=== PATIENT | female | born 1975 | race Caucasian/White ===

== ENCOUNTER 2019-04-20 06:08 | Inpatient (IN) | payer OTHER ==
[2019-04-20] MEDS ORDERED: Diltiazem 25 MG/5 ML SDV IVPUSH ONE ×4 (06:21→11:17)
[2019-04-20] MEDS ORDERED: Diltiazem 25 MG/5 ML SDV ONE (06:23)
[2019-04-20] MEDS ORDERED: Sodium Chloride 0.9% 2.5 ML Syringe FLUSH PRN (06:25)
[2019-04-20] MEDS ORDERED: Sodium Chloride 0.9% 10 ML Syringe FLUSH PRN (06:25)
--- NOTE | 2019-04-20 06:46 | CR ---
Indication: Irregular heartbeat Technique: Chest 1 view Comparison: None Findings/Impression: Cardiovascular and mediastinum: Heart size and vasculature are normal in caliber and appearance. Mediastinum is within normal limits. Lungs and pleural space: Lungs are clear. No sign of infiltrate or mass. No sign of pleural effusion. No pneumothorax. Bones and soft tissues: No significant findings. Dictated by Suri Santillan MD @ Apr 20 2019 6:43AM Signed by Dr. Suri Santillan @ Apr 20 2019 6:43AM
[2019-04-20 07:02] LABS: CHLORIDE,CL 105 mmol/L (98-107); SODIUM,NA 141 mmol/L (136-145)
[2019-04-20] MEDS ORDERED: Sodium Chloride 0.9% 1,000 ML IV SCH (07:15)
[2019-04-20] MEDS ORDERED: Digoxin 500 MCG/2 ML Amp IVPUSH ONE (07:46)
--- NOTE | 2019-04-20 07:48 | EDM.PDOC ---
ED HPI GENERAL MEDICAL PROBLEM - General Chief Complaint: Cardiovascular Problem Stated Complaint: AFIB Time Seen by Provider: 04/20/19 07:47 Source of Information: Reports: Patient - History of Present Illness INITIAL COMMENTS - FREE TEXT/NARRATIVE: HISTORY AND PHYSICAL: History of present illness: [Patient with history of atrial fibrillation previous cardioversion in [facility] presents with awakening from sleep with shortness of breath and rapid heart rate sensation On arrival rate is in the 140s she is in no distress no chest pain headache dizziness no bowel or urine symptoms] Review of systems: As per history of present illness and below otherwise all systems reviewed and negative. Past medical history: As per history of present illness and as reviewed below otherwise noncontributory. Surgical history: As per history of present illness and as reviewed below otherwise noncontributory. Social history: No reported history of drug or alcohol abuse. Family history: As per history of present illness and as reviewed below otherwise noncontributory. Physical exam: HEENT: Atraumatic, normocephalic, pupils reactive, negative for conjunctival pallor or scleral icterus, mucous membranes moist, throat clear, neck supple, nontender, trachea midline. Lungs: Clear to auscultation, breath sounds equal bilaterally, chest nontender. Heart: S1S2, regular, negative for clicks, rubs, or JVD. Abdomen: Soft, nondistended, nontender. Negative for masses or hepatosplenomegaly. Negative for costovertebral tenderness. Pelvis: Stable nontender. Genitourinary: Deferred. Rectal: Deferred. Extremities: Atraumatic, negative for cords or calf pain. Neurovascular unremarkable. Neuro: Awake, alert, oriented. Cranial nerves II through XII unremarkable. Cerebellum unremarkable. Motor and sensory unremarkable throughout. Exam nonfocal. Diagnostics: [CBC CMP troponin EKG Chest 1 view ] Therapeutics: [Normal saline Cardizem 20 mg IV 2 Digoxin 0.125 IV ] Impression: [ A. fib with RVR ] Definitive disposition and diagnosis as appropriate pending reevaluation and review of above. - Related Data Allergies Allergy/AdvReac Type Severity Reaction Status Date / Time adhesive tape Allergy Hives Verified 04/20/19 06:37 diphenhydramine Allergy Tachycardia Verified 04/20/19 06:37 [From Benadryl] Home Meds: Home Meds Diltiazem [Dilacor XR] 1 cap PO DAILY 06/26/18 [History] Lisinopril 20 mg PO DAILY 06/26/18 [History] Rivaroxaban [Xarelto] 1 tab PO DAILY 06/26/18 [History] Sotalol HCl [Sotalol] 80 mg PO BID 06/26/18 [History] metFORMIN [Glucophage XR] 1 tab PO BID 06/26/18 [History] hydroCHLOROthiazide [Hydrochlorothiazide] 1 tab PO DAILY 08/07/18 [History] Past Medical History Cardiovascular History: Reports: Afib, Arrhythmia, Hypertension Respiratory History: Reports: Asthma 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 History: Reports: Polycystic Ovaries Neurological History: Reports: Migraines Endocrine/Metabolic History: Reports: Obesity/BMI 30+ - Infectious Disease History Infectious Disease History: Reports: Chicken Pox - Past Surgical History HEENT Surgical History: Reports: Tonsillectomy Cardiovascular Surgical History: Reports: Other (See Below) Other Cardiovascular Surgeries/Procedures: cardioversion GI Surgical History: Reports: Cholecystectomy Female Surgical History: Reports: D&C Social & Family History - Family History Family Medical History: Noncontributory - Tobacco Use Smoking Status *Q: Never Smoker - Caffeine Use Caffeine Use: Reports: None - Recreational Drug Use Recreational Drug Use: No ED ROS GENERAL - Review of Systems Review Of Systems: See Below ED EXAM, GENERAL - Physical Exam Exam: See Below Course - Vital Signs Last Recorded V/S: Last Vital Signs Temp 97 F 04/20/19 06:08 Pulse 137 H 04/20/19 07:56 Resp 18 04/20/19 07:22 BP 163/87 H 04/20/19 07:22 Pulse Ox 97 04/20/19 07:22 - Orders/Labs/Meds Orders: Active Orders 24 hr Category Date Time Status Cardiac Monitoring [RC] . DIRECTED Care 04/20/19 06:24 Active EKG Documentation Completion [RC] STAT Care 04/20/19 06:22 Active Sodium Chloride 0.9% [Normal Saline] 1,000 ml Med 04/20/19 07:15 Active IV STAT Sodium Chloride 0.9% [Saline Flush] Med 04/20/19 06:25 Active 10 ml FLUSH ASDIRECTED PRN Sodium Chloride 0.9% [Saline Flush] Med 04/20/19 06:25 Active 2.5 ml FLUSH ASDIRECTED PRN Saline Lock Insert [OM.PC] Stat Oth 04/20/19 06:25 Ordered Medication Orders Sodium Chloride (Normal Saline) 1,000 mls @ 1,225 mls/hr IV STAT RADHA Last Infusion: 04/20/19 07:09 Dose: 125 mls/hr Admin: 04/20/19 07:08 Dose: 1,225 mls/hr Sodium Chloride (Saline Flush) 10 ml FLUSH ASDIRECTED PRN PRN Reason: Keep Vein Open Last Admin: 04/20/19 07:08 Dose: 10 ml Sodium Chloride (Saline Flush) 2.5 ml FLUSH ASDIRECTED PRN PRN Reason: Keep Vein Open Last Admin: 04/20/19 07:08 Dose: 2.5 ml Labs: Laboratory Tests 04/20/19 04/20/19 04/20/19 Range/Units 06:24 06:24 06:24 WBC 11.41 H (4.0-11.0) K/uL RBC 4.93 (4.30-5.90) M/uL Hgb 14.7 (12.0-16.0) g/dL Hct 45.0 (36.0-46.0) % MCV 91.3 (80.0-98.0) fL MCH 29.8 (27.0-32.0) pg MCHC 32.7 (31.0-37.0) g/dL RDW Std Deviation 48.9 (28.0-62.0) fl RDW Coeff of All 15 (11.0-15.0) % Plt Count 297 (150-400) K/uL MPV 10.80 (7.40-12.00) fL Neut % (Auto) 51.1 (48.0-80.0) % Lymph % (Auto) 32.2 (16.0-40.0) % [place] % (Auto) 8.4 (0.0-15.0) % Eos % (Auto) 7.4 H (0.0-7.0) % Baso % (Auto) 0.9 (0.0-1.5) % Neut # (Auto) 5.8 H (1.4-5.7) K/uL Lymph # (Auto) 3.7 H (0.6-2.4) K/uL [place] # (Auto) 1.0 H (0.0-0.8) K/uL Eos # (Auto) 0.9 H (0.0-0.7) K/uL Baso # (Auto) 0.1 (0.0-0.1) K/uL Nucleated RBC % 0.0 /100WBC Nucleated RBCs # 0 K/uL INR 0.95 Sodium 141 (136-145) mmol/L Potassium 3.5 (3.5-5.1) mmol/L Chloride 105 (98-107) mmol/L Carbon Dioxide 26.8 (21.0-32.0) mmol/L BUN 16 (7.0-18.0) mg/dL Creatinine 0.8 (0.6-1.0) mg/dL Est Cr Clr Drug Dosing 85.76 mL/min Estimated GFR (MDRD) > 60.0 ml/min Glucose 131 H (74-106) mg/dL Calcium 9.3 (8.5-10.1) mg/dL Total Bilirubin 0.2 (0.2-1.0) mg/dL AST 7 L (15-37) IU/L ALT 11 L (14-63) IU/L Alkaline Phosphatase 121 H (46-116) U/L Troponin I < 0.050 (0.000-0.056) ng/mL Total Protein 7.4 (6.4-8.2) g/dL Albumin 3.0 L (3.4-5.0) g/dL Globulin 4.4 H (2.6-4.0) g/dL Albumin/Globulin Ratio 0.7 L (0.9-1.6) TSH 3rd Generation 1.64 (0.36-3.74) uIU/mL Meds: Medications Generic Name Dose Route Start Last Admin Trade Name Freq PRN Reason Stop Dose Admin Sodium Chloride 1,000 mls @ 1,225 mls/hr 04/20/19 07:15 04/20/19 07:09 Normal Saline IV 125 mls/hr STAT RADHA Infusion Sodium Chloride 10 ml 04/20/19 06:25 04/20/19 07:08 Saline Flush FLUSH 10 ml ASDIRECTED PRN Administration Keep Vein Open Sodium Chloride 2.5 ml 04/20/19 06:25 04/20/19 07:08 Saline Flush FLUSH 2.5 ml ASDIRECTED PRN Administration Keep Vein Open Discontinued Medications Generic Name Dose Route Start Last Admin Trade Name Gudelia PRN Reason Stop Dose Admin Digoxin 125 mcg 04/20/19 07:46 04/20/19 07:56 Lanoxin IVPUSH 04/20/19 07:47 125 mcg ONETIME ONE Administration Diltiazem HCl 25 mg 04/20/19 06:21 04/20/19 06:27 Diltiazem IVPUSH 04/20/19 06:22 25 mg ONETIME ONE Administration Diltiazem HCl Confirm 04/20/19 06:23 04/20/19 06:34 Diltiazem Administered 04/20/19 06:24 Not Given Dose 25 mg .ROUTE .STK-MED ONE Diltiazem HCl 20 mg 04/20/19 07:13 04/20/19 07:25 Diltiazem IVPUSH 04/20/19 07:14 20 mg ONETIME ONE Administration Departure - Departure Time of Disposition: 08:08 Disposition: Admitted As Inpatient 67 Condition: Fair Clinical Impression: Atrial fibrillation with RVR Referrals: Rj Don MD [Primary Care Provider] - Forms: ED Department Discharge - My Orders Last 24 Hours: My Active Orders 04/20/19 07:15 Sodium Chloride 0.9% [Normal Saline] 1,000 ml IV STAT - Assessment/Plan Last 24 Hours: My Active Orders 04/20/19 07:15 Sodium Chloride 0.9% [Normal Saline] 1,000 ml IV STAT
[2019-04-20] MEDS ORDERED: Albuterol 0.083% 2.5 MG/3 ML Neb Soln NEB PRN (08:15)
[2019-04-20] MEDS ORDERED: Ondansetron 4 MG Tab.DIS PO PRN (08:15)
[2019-04-20] MEDS ORDERED: Ondansetron 4 MG/2 ML SDV IVPUSH PRN (08:15)
[2019-04-20] MEDS ORDERED: Ibuprofen 600 MG Tab PO PRN (08:15)
[2019-04-20] MEDS ORDERED: Acetaminophen 325 MG Tab PO PRN (08:15)
[2019-04-20] MEDS ORDERED: Diltiazem 125 MG in Sodium Chloride 0.9% 100 ML IV SCH (08:30)
[2019-04-20] MEDS: Diltiazem 100 MG in Sodium Chloride 0.9% 100 ML IV SCH ×3 (08:46→21:16)
[2019-04-20] MEDS ORDERED: Non-Formulary Medication 1 Each (Lisinopril 20 MG) PO SCH (09:00)
[2019-04-20] MEDS ORDERED: Lisinopril 10 MG Tab PO SCH (09:00)
[2019-04-20] MEDS ORDERED: METFORMIN PO SCH (09:00)
[2019-04-20] MEDS ORDERED: Rivaroxaban 10 MG Tab PO SCH (09:00)
[2019-04-20] MEDS: LORazepam 2 MG/ML SDV IVPUSH PRN ×3 (09:30→23:23)
--- NOTE | 2019-04-20 09:51 | PCM.HP.2 ---
<Benjamin Miles - Last Filed: 04/20/19 11:32> H&P History of Present Illness - General Date of Service: 04/20/19 Admit Problem/Dx: Admission Diagnosis/Problem Admission Diagnosis/Problem Atrial fibrillation with rapid ventricular response - History of Present Illness Initial Comments - Free Text/Narative: 43 y/o female with history of Afib s/p cardioversion in 2016 who presented to the ER complaining of worsening shortness of breath. States she was feeling palpitations yesterday. No chest pain. Some shortness of breath. States she was started on Xarelto by her PCP recently. Denies any nausea, vomiting. No abdominal pain, dysuria, diarrhea. No worsening leg swelling. In the ER, she was found to be in Afib with RVR 130-150's. Diltiazem IV was given. - Related Data Allergies/Adverse Reactions: Allergies Allergy/AdvReac Type Severity Reaction Status Date / Time adhesive tape Allergy Hives Verified 04/20/19 06:37 diphenhydramine Allergy Tachycardia Verified 04/20/19 06:37 [From Benadryl] Home Medications: Home Meds Diltiazem [Dilacor XR] 1 cap PO DAILY 06/26/18 [History] Lisinopril 30 mg PO DAILY 06/26/18 [History] Rivaroxaban [Xarelto] 1 tab PO DAILY 06/26/18 [History] Sotalol HCl [Sotalol] 80 mg PO BID 06/26/18 [History] metFORMIN [Glucophage XR] 1 tab PO BID 06/26/18 [History] hydroCHLOROthiazide [Hydrochlorothiazide] 1 tab PO DAILY 08/07/18 [History] Past Medical History Cardiovascular History: Reports: Afib, Arrhythmia, Hypertension Respiratory History: Reports: Asthma 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: Polycystic 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 Neurological History: Reports: Migraines Endocrine/Metabolic History: Reports: Obesity/BMI 30+ - Infectious Disease History Infectious Disease History: Reports: Chicken Pox - Past Surgical History HEENT Surgical History: Reports: Tonsillectomy Cardiovascular Surgical History: Reports: Other (See Below) Other Cardiovascular Surgeries/Procedures: cardioversion GI Surgical History: Reports: Cholecystectomy Female Surgical History: Reports: D&C Social & Family History - Family History Family Medical History: Noncontributory - Tobacco Use Smoking Status *Q: Never Smoker - Caffeine Use Caffeine Use: Reports: None - Recreational Drug Use Recreational Drug Use: No H&P Review of Systems - Review of Systems: Review Of Systems: ROS reveals no pertinent complaints other than HPI. Exam - Exam Exam: See Below - Vital Signs Vital Signs: Last Vital Signs Temp 36.1 C 04/20/19 06:08 Pulse 98 04/20/19 08:15 Resp 18 04/20/19 07:22 BP 146/74 H 04/20/19 08:15 Pulse Ox 98 04/20/19 08:15 Weight: 181 kg - Exam General: Alert, Oriented, Cooperative Lungs: Clear to Auscultation. No: Crackles, Wheezing Cardiovascular: Irregular Rhythm, Tachycardia GI/Abdominal Exam: Other (large body habitus unable to fully assess) Extremities: Normal Inspection, No Pedal Edema Skin: Warm, Dry - Patient Data Lab Results Last 24 hrs: Laboratory Results - last 24 hr 04/20/19 04/20/19 04/20/19 Range/Units 06:24 06:24 06:24 WBC 11.41 H (4.0-11.0) K/uL RBC 4.93 (4.30-5.90) M/uL Hgb 14.7 (12.0-16.0) g/dL Hct 45.0 (36.0-46.0) % MCV 91.3 (80.0-98.0) fL MCH 29.8 (27.0-32.0) pg MCHC 32.7 (31.0-37.0) g/dL RDW Std Deviation 48.9 (28.0-62.0) fl RDW Coeff of All 15 (11.0-15.0) % Plt Count 297 (150-400) K/uL MPV 10.80 (7.40-12.00) fL Neut % (Auto) 51.1 (48.0-80.0) % Lymph % (Auto) 32.2 (16.0-40.0) % [place] % (Auto) 8.4 (0.0-15.0) % Eos % (Auto) 7.4 H (0.0-7.0) % Baso % (Auto) 0.9 (0.0-1.5) % Neut # (Auto) 5.8 H (1.4-5.7) K/uL Lymph # (Auto) 3.7 H (0.6-2.4) K/uL [place] # (Auto) 1.0 H (0.0-0.8) K/uL Eos # (Auto) 0.9 H (0.0-0.7) K/uL Baso # (Auto) 0.1 (0.0-0.1) K/uL Nucleated RBC % 0.0 /100WBC Nucleated RBCs # 0 K/uL INR 0.95 Sodium 141 (136-145) mmol/L Potassium 3.5 (3.5-5.1) mmol/L Chloride 105 (98-107) mmol/L Carbon Dioxide 26.8 (21.0-32.0) mmol/L BUN 16 (7.0-18.0) mg/dL Creatinine 0.8 (0.6-1.0) mg/dL Est Cr Clr Drug Dosing 85.76 mL/min Estimated GFR (MDRD) > 60.0 ml/min Glucose 131 H (74-106) mg/dL Calcium 9.3 (8.5-10.1) mg/dL Total Bilirubin 0.2 (0.2-1.0) mg/dL AST 7 L (15-37) IU/L ALT 11 L (14-63) IU/L Alkaline Phosphatase 121 H (46-116) U/L Troponin I < 0.050 (0.000-0.056) ng/mL Total Protein 7.4 (6.4-8.2) g/dL Albumin 3.0 L (3.4-5.0) g/dL Globulin 4.4 H (2.6-4.0) g/dL Albumin/Globulin Ratio 0.7 L (0.9-1.6) TSH 3rd Generation 1.64 (0.36-3.74) uIU/mL Result Diagrams: 04/20/19 06:24 04/20/19 06:24 Problem List Initiated/Reviewed/Updated: Yes Orders Last 24hrs: Active Orders 24 hr Category Date Time Status Admission Status [Patient Status] [ADT] Stat ADT 04/20/19 08:16 Active Cardiac Monitoring [RC] . DIRECTED Care 04/20/19 06:24 Active EKG Documentation Completion [RC] STAT Care 04/20/19 06:22 Active Intake and Output [RC] QSHIFT Care 04/20/19 08:15 Active Oxygen Therapy [RC] PRN Care 04/20/19 08:15 Active RT Aerosol Therapy [RC] ASDIRECTED Care 04/20/19 08:17 Active Up ad Katt [RC] ASDIRECTED Care 04/20/19 08:15 Active VTE/DVT Education [RC] PER UNIT ROUTINE Care 04/20/19 08:15 Active Vital Signs [RC] Q4H Care 04/20/19 08:15 Active Heart Healthy Diet [DIET] Diet 04/20/19 Lunch Active Acetaminophen [Tylenol] Med 04/20/19 08:15 Active 650 mg PO Q4H PRN Albuterol [Proventil Neb Soln] Med 04/20/19 08:15 Active 2.5 mg NEB Q2H PRN Diltiazem [Cardizem] 100 mg Med 04/20/19 08:30 Active Sodium Chloride 0.9% [Normal Saline] 100 ml IV NOW Ibuprofen [Motrin] Med 04/20/19 08:15 Active 600 mg PO Q6H PRN LORazepam [Ativan] Med 04/20/19 08:21 Active 1 mg IVPUSH Q6H PRN Lisinopril [Prinivil] Med 04/20/19 09:00 Active 20 mg PO DAILY Ondansetron [Zofran ODT] Med 04/20/19 08:15 Active 4 mg PO Q4H PRN Ondansetron [Zofran] Med 04/20/19 08:15 Active 4 mg IVPUSH Q4H PRN Patient's Own Medication [Ptom] Med 04/20/19 09:00 Active 1 each PO BID Rivaroxaban [Xarelto] Med 04/20/19 09:00 Active 10 mg PO DAILY Sodium Chloride 0.9% [Normal Saline] 1,000 ml Med 04/20/19 07:15 Active IV STAT Sodium Chloride 0.9% [Saline Flush] Med 04/20/19 06:25 Active 10 ml FLUSH ASDIRECTED PRN Sodium Chloride 0.9% [Saline Flush] Med 04/20/19 06:25 Active 2.5 ml FLUSH ASDIRECTED PRN Sotalol [Betapace] Med 04/20/19 09:00 Active 80 mg PO BID hydroCHLOROthiazide Med 04/20/19 09:00 Active 25 mg PO DAILY Saline Lock Insert [OM.PC] Stat Oth 04/20/19 06:25 Ordered Resuscitation Status Routine Resus Stat 04/20/19 08:15 Ordered Medication Orders Acetaminophen (Tylenol) 650 mg PO Q4H PRN PRN Reason: Pain (Mild 1-3)/fever Albuterol (Proventil Neb Soln) 2.5 mg NEB Q2H PRN PRN Reason: Shortness Of Breath/wheezing Hydrochlorothiazide (Hydrochlorothiazide) 25 mg PO DAILY RADHA Sodium Chloride (Normal Saline) 1,000 mls @ 1,225 mls/hr IV STAT RADHA Last Infusion: 04/20/19 07:09 Dose: 125 mls/hr Admin: 04/20/19 07:08 Dose: 1,225 mls/hr Diltiazem HCl 100 mg/ Sodium (Chloride) 100 mls @ 5 mls/hr IV NOW RADHA; Protocol Last Titration: 04/20/19 09:16 Dose: 10 mg/hr, 10 mls/hr Admin: 04/20/19 08:46 Dose: 5 mg/hr, 5 mls/hr Ibuprofen (Motrin) 600 mg PO Q6H PRN PRN Reason: Pain (mild 1-3) Lisinopril (Prinivil) 20 mg PO DAILY RADHA Lorazepam (Ativan) 1 mg IVPUSH Q6H PRN PRN Reason: Anxiety Last Admin: 04/20/19 09:30 Dose: 1 mg Ondansetron HCl (Zofran Odt) 4 mg PO Q4H PRN PRN Reason: nausea, able to take PO Ondansetron HCl (Zofran) 4 mg IVPUSH Q4H PRN PRN Reason: Nausea Metformin Er [ (Glucophage Xr] 750mg) 1 each PO BID [facility] Rivaroxaban (Xarelto) 10 mg PO DAILY [facility] Sodium Chloride (Saline Flush) 10 ml FLUSH ASDIRECTED PRN PRN Reason: Keep Vein Open Last Admin: 04/20/19 07:08 Dose: 10 ml Sodium Chloride (Saline Flush) 2.5 ml FLUSH ASDIRECTED PRN PRN Reason: Keep Vein Open Last Admin: 04/20/19 07:08 Dose: 2.5 ml Sotalol HCl (Betapace) 80 mg PO BID [facility] Assessment/Plan Comment:: A: 1. AFib w/RVR on xarelto P: 1. Will continue her home medications for AFib. Started Diltiazem drip. Ordered Echo for tomorrow. Checking HgA1c, lipid panel. dispo:1-2 days <Stevan Lynn - Last Filed: 04/20/19 12:10> H&P History of Present Illness - General Admit Problem/Dx: Admission Diagnosis/Problem Admission Diagnosis/Problem Atrial fibrillation with rapid ventricular response I have examined the patient independently of medical instrument technician, Dr. Sue MD. I have discussed the case with him. I have reviewed and agree with the examination and plan as outlined by him. Please see orders. Exam - Vital Signs Vital Signs: Last Vital Signs Temp 36.1 C 04/20/19 06:08 Pulse 123 H 04/20/19 09:54 Resp 18 04/20/19 07:22 BP 130/86 04/20/19 09:54 Pulse Ox 98 04/20/19 08:15 - Patient Data Lab Results Last 24 hrs: Laboratory Results - last 24 hr 04/20/19 04/20/19 04/20/19 Range/Units 06:24 06:24 06:24 WBC 11.41 H (4.0-11.0) K/uL RBC 4.93 (4.30-5.90) M/uL Hgb 14.7 (12.0-16.0) g/dL Hct 45.0 (36.0-46.0) % MCV 91.3 (80.0-98.0) fL MCH 29.8 (27.0-32.0) pg MCHC 32.7 (31.0-37.0) g/dL RDW Std Deviation 48.9 (28.0-62.0) fl RDW Coeff of All 15 (11.0-15.0) % Plt Count 297 (150-400) K/uL MPV 10.80 (7.40-12.00) fL Neut % (Auto) 51.1 (48.0-80.0) % Lymph % (Auto) 32.2 (16.0-40.0) % [place] % (Auto) 8.4 (0.0-15.0) % Eos % (Auto) 7.4 H (0.0-7.0) % Baso % (Auto) 0.9 (0.0-1.5) % Neut # (Auto) 5.8 H (1.4-5.7) K/uL Lymph # (Auto) 3.7 H (0.6-2.4) K/uL [place] # (Auto) 1.0 H (0.0-0.8) K/uL Eos # (Auto) 0.9 H (0.0-0.7) K/uL Baso # (Auto) 0.1 (0.0-0.1) K/uL Nucleated RBC % 0.0 /100WBC Nucleated RBCs # 0 K/uL INR 0.95 Sodium 141 (136-145) mmol/L Potassium 3.5 (3.5-5.1) mmol/L Chloride 105 (98-107) mmol/L Carbon Dioxide 26.8 (21.0-32.0) mmol/L BUN 16 (7.0-18.0) mg/dL Creatinine 0.8 (0.6-1.0) mg/dL Est Cr Clr Drug Dosing 85.76 mL/min Estimated GFR (MDRD) > 60.0 ml/min Glucose 131 H (74-106) mg/dL Hemoglobin A1c (4.5-6.2) % Calcium 9.3 (8.5-10.1) mg/dL Total Bilirubin 0.2 (0.2-1.0) mg/dL AST 7 L (15-37) IU/L ALT 11 L (14-63) IU/L Alkaline Phosphatase 121 H (46-116) U/L Troponin I < 0.050 (0.000-0.056) ng/mL Total Protein 7.4 (6.4-8.2) g/dL Albumin 3.0 L (3.4-5.0) g/dL Globulin 4.4 H (2.6-4.0) g/dL Albumin/Globulin Ratio 0.7 L (0.9-1.6) TSH 3rd Generation 1.64 (0.36-3.74) uIU/mL 04/20/19 Range/Units 06:24 WBC (4.0-11.0) K/uL RBC (4.30-5.90) M/uL Hgb (12.0-16.0) g/dL Hct (36.0-46.0) % MCV (80.0-98.0) fL MCH (27.0-32.0) pg MCHC (31.0-37.0) g/dL RDW Std Deviation (28.0-62.0) fl RDW Coeff of All (11.0-15.0) % Plt Count (150-400) K/uL MPV (7.40-12.00) fL Neut % (Auto) (48.0-80.0) % Lymph % (Auto) (16.0-40.0) % [place] % (Auto) (0.0-15.0) % Eos % (Auto) (0.0-7.0) % Baso % (Auto) (0.0-1.5) % Neut # (Auto) (1.4-5.7) K/uL Lymph # (Auto) (0.6-2.4) K/uL [place] # (Auto) (0.0-0.8) K/uL Eos # (Auto) (0.0-0.7) K/uL Baso # (Auto) (0.0-0.1) K/uL Nucleated RBC % /100WBC Nucleated RBCs # K/uL INR Sodium (136-145) mmol/L Potassium (3.5-5.1) mmol/L Chloride (98-107) mmol/L Carbon Dioxide (21.0-32.0) mmol/L BUN (7.0-18.0) mg/dL Creatinine (0.6-1.0) mg/dL Est Cr Clr Drug Dosing mL/min Estimated GFR (MDRD) ml/min Glucose (74-106) mg/dL Hemoglobin A1c 5.8 (4.5-6.2) % Calcium (8.5-10.1) mg/dL Total Bilirubin (0.2-1.0) mg/dL AST (15-37) IU/L ALT (14-63) IU/L Alkaline Phosphatase (46-116) U/L Troponin I (0.000-0.056) ng/mL Total Protein (6.4-8.2) g/dL Albumin (3.4-5.0) g/dL Globulin (2.6-4.0) g/dL Albumin/Globulin Ratio (0.9-1.6) TSH 3rd Generation (0.36-3.74) uIU/mL Result Diagrams: 04/20/19 06:24 04/20/19 06:24 Orders Last 24hrs: Active Orders 24 hr Category Date Time Status Admission Status [Patient Status] [ADT] Stat ADT 04/20/19 08:16 Active Cardiac Monitoring [RC] . DIRECTED Care 04/20/19 06:24 Active EKG Documentation Completion [RC] STAT Care 04/20/19 06:22 Active Intake and Output [RC] QSHIFT Care 04/20/19 08:15 Active Oxygen Therapy [RC] PRN Care 04/20/19 08:15 Active RT Aerosol Therapy [RC] ASDIRECTED Care 04/20/19 08:17 Active Up ad Katt [RC] ASDIRECTED Care 04/20/19 08:15 Active VTE/DVT Education [RC] PER UNIT ROUTINE Care 04/20/19 08:15 Active Vital Signs [RC] Q4H Care 04/20/19 08:15 Active Heart Healthy Diet [DIET] Diet 04/20/19 Lunch Active Echo Comp wo Cont [US] Routine Exams 04/21/19 08:00 Ordered BASIC METABOLIC PANEL,BMP [CHEM] AM Lab 04/21/19 05:11 Ordered BASIC METABOLIC PANEL,BMP [CHEM] AM Lab 04/22/19 05:11 Ordered CBC W/O DIFF,HEMOGRAM [HEME] AM Lab 04/21/19 05:11 Ordered CBC W/O DIFF,HEMOGRAM [HEME] AM Lab 04/22/19 05:11 Ordered LIPID PANEL [CHEM] AM Lab 04/21/19 05:11 Ordered Acetaminophen [Tylenol] Med 04/20/19 08:15 Active 650 mg PO Q4H PRN Albuterol [Proventil Neb Soln] Med 04/20/19 08:15 Active 2.5 mg NEB Q2H PRN Diltiazem [Cardizem] 100 mg Med 04/20/19 08:30 Active Sodium Chloride 0.9% [Normal Saline] 100 ml IV NOW Ibuprofen [Motrin] Med 04/20/19 08:15 Active 600 mg PO Q6H PRN LORazepam [Ativan] Med 04/20/19 08:21 Active 1 mg IVPUSH Q6H PRN Lisinopril [Prinivil] Med 04/20/19 09:00 Active 20 mg PO DAILY Ondansetron [Zofran ODT] Med 04/20/19 08:15 Active 4 mg PO Q4H PRN Ondansetron [Zofran] Med 04/20/19 08:15 Active 4 mg IVPUSH Q4H PRN Patient's Own Medication [Ptom] Med 04/20/19 09:00 Active 1 each PO BID Rivaroxaban [Xarelto] Med 04/21/19 09:00 Active 20 mg PO DAILY Sodium Chloride 0.9% [Normal Saline] 1,000 ml Med 04/20/19 07:15 Active IV STAT Sodium Chloride 0.9% [Saline Flush] Med 04/20/19 06:25 Active 10 ml FLUSH ASDIRECTED PRN Sodium Chloride 0.9% [Saline Flush] Med 04/20/19 06:25 Active 2.5 ml FLUSH ASDIRECTED PRN Sotalol [Betapace] Med 04/20/19 09:00 Active 80 mg PO BID hydroCHLOROthiazide Med 04/20/19 09:00 Active 25 mg PO DAILY Saline Lock Insert [OM.PC] Stat Oth 04/20/19 06:25 Ordered Resuscitation Status Routine Resus Stat 04/20/19 08:15 Ordered Medication Orders Acetaminophen (Tylenol) 650 mg PO Q4H PRN PRN Reason: Pain (Mild 1-3)/fever Albuterol (Proventil Neb Soln) 2.5 mg NEB Q2H PRN PRN Reason: Shortness Of Breath/wheezing Hydrochlorothiazide (Hydrochlorothiazide) 25 mg PO DAILY RADHA Last Admin: 04/20/19 09:53 Dose: 25 mg Sodium Chloride (Normal Saline) 1,000 mls @ 1,225 mls/hr IV STAT RADHA Last Infusion: 04/20/19 07:09 Dose: 125 mls/hr Admin: 04/20/19 07:08 Dose: 1,225 mls/hr Diltiazem HCl 100 mg/ Sodium (Chloride) 100 mls @ 5 mls/hr IV NOW [facility]; Protocol Last Titration: 04/20/19 09:16 Dose: 10 mg/hr, 10 mls/hr Admin: 04/20/19 08:46 Dose: 5 mg/hr, 5 mls/hr Ibuprofen (Motrin) 600 mg PO Q6H PRN PRN Reason: Pain (mild 1-3) Lisinopril (Prinivil) 20 mg PO DAILY [facility] Last Admin: 04/20/19 09:53 Dose: 20 mg Lorazepam (Ativan) 1 mg IVPUSH Q6H PRN PRN Reason: Anxiety Last Admin: 04/20/19 09:30 Dose: 1 mg Ondansetron HCl (Zofran Odt) 4 mg PO Q4H PRN PRN Reason: nausea, able to take PO Ondansetron HCl (Zofran) 4 mg IVPUSH Q4H PRN PRN Reason: Nausea Metformin Er [ (Glucophage Xr] 750mg) 1 each PO BID [facility] Last Admin: 04/20/19 11:43 Dose: 1 each Rivaroxaban (Xarelto) 20 mg PO DAILY [facility] Sodium Chloride (Saline Flush) 10 ml FLUSH ASDIRECTED PRN PRN Reason: Keep Vein Open Last Admin: 04/20/19 07:08 Dose: 10 ml Sodium Chloride (Saline Flush) 2.5 ml FLUSH ASDIRECTED PRN PRN Reason: Keep Vein Open Last Admin: 04/20/19 07:08 Dose: 2.5 ml Sotalol HCl (Betapace) 80 mg PO BID [facility] Last Admin: 04/20/19 09:54 Dose: 80 mg
[2019-04-20] MEDS: Hydrochlorothiazide 25 MG Tab PO SCH (09:53)
[2019-04-20] MEDS: Sotalol 80 MG Tab PO SCH ×2 (09:54→21:16)
[2019-04-20] MEDS ORDERED: Rivaroxaban 10 MG Tab PO ONE (11:22)
[2019-04-20] MEDS: METFORMIN 750 MG PO SCH ×2 (11:43→21:16)
[2019-04-20 11:45] LABS: HEMOGLOBIN A1C 5.8 % (4.5-6.2)
--- NOTE | 2019-04-20 11:52 | PN ---
THC Physician - Brief Progress [id number]/18/2019 09:58[facility] Suzy Leon, [place] - HORTENCIA (KRISTINE) - KIMBERLYN RHONDA MONTIELDate of Service 04/20/2019 09:58HPI/Event s of Note eICU Admit NotePt is a 43 yo F that presented to the ED with c/o palpitations. PMH includes MO, DM, HTN and A fib s/p CV in 2016. She was started on a Dilt gtt at 10 mg/hr and admitted to the ICU. Her HR is currently still in the 120's but she is sitting up in bed in NAD with otherwise stable VS. She has been continued on her home Xarelto and other home meds. Her WBC's are elevated, but < 12 with no current signs of infection. Her trops are thus far negative, she has no chest pain and she h as a 2D Echo pending for the am. Case was discussed with her nurse Virginia. eICU Recs:1) Dilt gtt as nee ded for rate control2) OAC with continued home Xarelto3) 2D Echo pending4) Monitor for signs of infec tion with WBC's of 11.45) BG management6) GI ProphylaxisInterventions Major-Arrhythmia - evaluation a nd managementIntermediate-Communication with other healthcare providers and/or familyElectronically S igned by: LEXIE VARELA () on 04/20/2019 11:51
[2019-04-20] MEDS: Metoprolol Tartrate 50 MG Tab PO SCH (16:53)
[2019-04-21] MEDS: Metoprolol Tartrate 50 MG Tab PO SCH (03:25)
[2019-04-21] MEDS: Diltiazem 100 MG in Sodium Chloride 0.9% 100 ML IV SCH ×2 (03:25→08:11)
[2019-04-21 05:45] LABS: CHLORIDE,CL 107 mmol/L (98-107); SODIUM,NA 142 mmol/L (136-145)
[2019-04-21] MEDS ORDERED: Omeprazole 20 MG Cap.CR PO SCH (07:30)
[2019-04-21] MEDS: Hydrochlorothiazide 25 MG Tab PO SCH (08:10)
[2019-04-21] MEDS: METFORMIN 750 MG PO SCH (08:11)
[2019-04-21] MEDS: Sotalol 80 MG Tab PO SCH (08:11)
[2019-04-21] MEDS: Potassium Chloride 20 MEQ Tab.ER PO SCH ×2 (08:16→11:31)
[2019-04-21] MEDS ORDERED: Rivaroxaban 10 MG Tab PO SCH (09:00)
[2019-04-21] MEDS ORDERED: Lisinopril 10 MG Tab PO SCH (09:00)
[2019-04-21] MEDS ORDERED: Diltiazem 180 MG Cap.CD PO SCH ×2 (09:15→11:00)
[2019-04-21] MEDS ORDERED: Sotalol 80 MG Tab PO ONE (09:30)
[2019-04-21] MEDS: LORazepam 2 MG/ML SDV IVPUSH PRN (09:38)
--- NOTE | 2019-04-21 11:31 | CONS ---
DATE OF CONSULTATION: DATE OF : 1975 PRIMARY CARE PHYSICIAN: CARMELLA GOVEA REASON FOR CONSULTATION: Persistent atrial fibrillation. HISTORY OF PRESENT ILLNESS: This is a 43-year-old female with a history of morbid obesity, hypertension, prediabetes, PCOS, paroxysmal atrial fibrillation. She was admitted in the hospital due to heart palpitation and shortness of breath. She started having the palpitation, woke her up in the morning one day prior to her admission. She feels shortness of breath. She felt that her heart rate is irregular and then she came to the emergency room. She has lived here in [place] for 2 years from [place]. At home, she is on lisinopril 30 mg once a day, diltiazem 240 mg once a day, Xarelto noted 10 mg once a day, sotalol 80 mg twice a day, and hydrochlorothiazide 25 mg once a day. When she got here, she was found to have AFib with RVR, heart rate of 143, and then the Cardizem IV drip was started. She is currently on now at 15 mg/hour and her heart rate hanging between 90 to 100. Hospitalist team also started her on the metoprolol 50 mg twice a day. So far, troponin was negative x2. PAST MEDICAL HISTORY: Including paroxysmal atrial fibrillation. She stated that she underwent an emergent cardioversion in 2015 when she was living in [place] and sotalol afterwards was started 80 mg twice a day along with diltiazem as well as Xarelto. That is the only time that she had a cardioversion and the first time she was told she has AFib. She was mentioned about AFib ablation, but she has never been scheduled to have it done. She denies history of thyroid problems. She also denies history of a sleep apnea. She had a sleep test done in 2016. It was negative per the patient's report. History of PCOS and hypertension. ALLERGIES: She is allergic to diphenhydramine and adhesive tape. SOCIAL HISTORY: She never smoked. She denies drug use. She denies alcohol consumption. REVIEW OF SYSTEMS: Has been negative except in indicated in the HPI. PHYSICAL EXAMINATION: VITAL SIGNS: Initial vital signs, heart rate 130 to 140, blood pressure 130/80, O2 saturation is 95 on room air, respiration is 12, and temperature 97, and after she is on diltiazem 15 per hour as well as sotalol 80 mg b.i.d., her heart rate hanging between 100 and her blood pressure is still 110 to 120 systolic blood pressure, O2 saturation 94 to 95. HEENT: Not pale. No jaundice. No JVD. HEART: Normal S1 and S2. Totally irregular. LUNGS: Clear. No wheezing. No crackles. ABDOMEN: Soft and nontender. Bowel sounds are present. No hepatosplenomegaly. EXTREMITIES: Legs, no edema. INVESTIGATIONS: EKG on April 20, 2019: Heart rate of 143, AFib, QRS duration 81. Echocardiogram prelim report; it was a very poor study, but presumably grossly preserved ejection fraction. CBC shows WBC 11, hematocrit of 42, hemoglobin of 13, platelet is 267. INR is 0.95. A1c 5.8. TSH 1.6, normal. Total cholesterol is 168, HDL 30, LDL 98, triglycerides 201. Troponin was negative x2. Potassium 3.2, magnesium 2. ASSESSMENT AND PLAN: This is a 43-year-old female with morbid obesity, hypertension, polycystic ovary syndrome, prediabetes, and persistent atrial fibrillation, highly symptomatic for atrial fibrillation. Recommended to restoring the sinus rhythm for symptom control. It was unclear that she was on the Xarelto 10 mg or 20 mg, it was noted 10 mg, and she was very anxious regarding having the cardioversion done locally, and she wanted it done in a safer way, and she was not sure if the symptom of the atrial fibrillation just started one day prior to the hospitalization. It could be more than 48 hours. Given the fact that Xarelto dosing may not be suboptimal as well as her symptom of atrial fibrillation could be more than 48 hours, recommended to have a SALEEM cardioversion. She will prefer to have it done in [place] rather than locally. We will arrange the SALEEM and cardioversion in [facility] in [place], and the risk and benefit have been explained to the patient including esophageal rupture, ulcer, bleeding, esophageal perforation, gastric perforation, stroke, heart attack, and , and the patient verbalized understanding. PJ MATT /[id number]
--- NOTE | 2019-04-21 11:54 | PCM.DCSUM1 ---
<Benjamin Miles - Last Filed: 04/21/19 14:47> Discharge Summary - Hospital Course Free Text/Narrative:: 43 y/o female with history of Afib s/p cardioversion few years ago in [place], [place] who presented to the ER complaining of worsening shortness of breath for the past 1 week. In the ER she was found to be in AFib w/RVR. She was administered several diltiazem IV doses and started on cardizem drip. Troponins were negative. Echo was done which results were pending at time of discharge. Cardiology was consulted and made some changes to her home regimen which included going up on cardizem ER to 360 mg PO daily and Sotalol 120 mg PO BID. She was started on Xarelto 20 mg PO daily. She later converted to sinus the following morning with rate in 70-80's. She was discharged home with instructions to follow-up with outpatient cardiology in [place]. - Discharge Data Discharge Date: 04/21/19 Discharge Disposition: Home, Self-Care 01 Condition: Good - Patient Instructions Diet: Heart Healthy Diet Activity: As Tolerated Notify Provider of: Fever, Increased Pain, Swelling and Redness, Nausea and/or Vomiting - Discharge Plan *PRESCRIPTION DRUG MONITORING PROGRAM REVIEWED*: Not Applicable *COPY OF PRESCRIPTION DRUG MONITORING REPORT IN PATIENT MARIBEL: Not Applicable Prescriptions/Med Rec: Diltiazem HCl [Diltiazem ER] 360 mg PO DAILY 30 Days #30 capsule.er Rivaroxaban [Xarelto] 20 mg PO DAILY 30 Days #30 tablet Sotalol HCl [Sotalol] 120 mg PO BID 30 Days #60 tablet Home Medications: Home Meds Lisinopril 30 mg PO DAILY 06/26/18 [History] metFORMIN [Glucophage XR] 1 tab PO BID 06/26/18 [History] hydroCHLOROthiazide [Hydrochlorothiazide] 1 tab PO DAILY 08/07/18 [History] Diltiazem HCl [Diltiazem ER] 360 mg PO DAILY 30 Days #30 capsule.er 04/21/19 [Rx ] Rivaroxaban [Xarelto] 20 mg PO DAILY 30 Days #30 tablet 04/21/19 [Rx] Sotalol HCl [Sotalol] 120 mg PO BID 30 Days #60 tablet 04/21/19 [Rx] Patient Handouts: Cardiac Ablation, [id number], Atrial Fibrillation Forms: ED Department Discharge Referrals: Michel Blackman MD [Physician] - 05/19/19 3:00 pm Rj Don MD [Primary Care Provider] - 04/28/19 2:25 pm - Discharge Summary/Plan Comment DC Time >30 min.: No - Patient Data Vitals - Most Recent: Last Vital Signs Temp 37.0 C 04/21/19 04:00 Pulse 75 04/21/19 11:51 Resp 21 H 04/21/19 11:51 BP 130/78 04/21/19 11:00 Pulse Ox 94 L 04/21/19 11:51 Weight - Most Recent: 184.3 kg I&O - Last 24 hours: Intake & Output 04/20/19 04/21/19 04/21/19 22:59 06:59 14:59 Intake Total 600 850 120 Output Total 1800 400 Balance -1200 850 -280 Lab Results - Last 24 hrs: Laboratory Results - last 24 hr 04/20/19 04/21/19 04/21/19 Range/Units 06:24 04:40 04:40 WBC 11.41 H (4.0-11.0) K/uL RBC 4.69 (4.30-5.90) M/uL Hgb 13.9 (12.0-16.0) g/dL Hct 42.6 (36.0-46.0) % MCV 90.8 (80.0-98.0) fL MCH 29.6 (27.0-32.0) pg MCHC 32.6 (31.0-37.0) g/dL RDW Std Deviation 47.7 (28.0-62.0) fl RDW Coeff of All 15 (11.0-15.0) % Plt Count 267 (150-400) K/uL MPV 10.60 (7.40-12.00) fL Nucleated RBC % 0.0 /100WBC Nucleated RBCs # 0 K/uL Sodium 142 (136-145) mmol/L Potassium 3.2 L (3.5-5.1) mmol/L Chloride 107 (98-107) mmol/L Carbon Dioxide 24.9 (21.0-32.0) mmol/L BUN 12 (7.0-18.0) mg/dL Creatinine 0.8 (0.6-1.0) mg/dL Est Cr Clr Drug Dosing 85.76 mL/min Estimated GFR (MDRD) > 60.0 ml/min Glucose 113 H (74-106) mg/dL Calcium 9.0 (8.5-10.1) mg/dL Magnesium 2.0 (1.8-2.4) mg/dL Troponin I (0.000-0.056) ng/mL Triglycerides 201 H (0-200) mg/dL Cholesterol 168 (50-200) mg/dL LDL Cholesterol, Calc 98 (60-180) mg/dL VLDL Cholesterol 40 (5-55) mg/dL HDL Cholesterol 30 L (40-60) mg/dL Cholesterol/HDL Ratio 5.6 (3.3-6.0) 04/21/19 04/21/19 Range/Units 04:40 09:31 WBC (4.0-11.0) K/uL RBC (4.30-5.90) M/uL Hgb (12.0-16.0) g/dL Hct (36.0-46.0) % MCV (80.0-98.0) fL MCH (27.0-32.0) pg MCHC (31.0-37.0) g/dL RDW Std Deviation (28.0-62.0) fl RDW Coeff of All (11.0-15.0) % Plt Count (150-400) K/uL MPV (7.40-12.00) fL Nucleated RBC % /100WBC Nucleated RBCs # K/uL Sodium (136-145) mmol/L Potassium (3.5-5.1) mmol/L Chloride (98-107) mmol/L Carbon Dioxide (21.0-32.0) mmol/L BUN (7.0-18.0) mg/dL Creatinine (0.6-1.0) mg/dL Est Cr Clr Drug Dosing mL/min Estimated GFR (MDRD) ml/min Glucose (74-106) mg/dL Calcium (8.5-10.1) mg/dL Magnesium 2.0 (1.8-2.4) mg/dL Troponin I < 0.050 (0.000-0.056) ng/mL Triglycerides (0-200) mg/dL Cholesterol (50-200) mg/dL LDL Cholesterol, Calc (60-180) mg/dL VLDL Cholesterol (5-55) mg/dL HDL Cholesterol (40-60) mg/dL Cholesterol/HDL Ratio (3.3-6.0) Med Orders - Current: Current Medications Acetaminophen (Tylenol) 650 mg PO Q4H PRN PRN Reason: Pain (Mild 1-3)/fever Albuterol (Proventil Neb Soln) 2.5 mg NEB Q2H PRN PRN Reason: Shortness Of Breath/wheezing Diltiazem HCl (Cardizem Cd) 360 mg PO DAILY [facility] Last Admin: 04/21/19 09:44 Dose: 360 mg Hydrochlorothiazide (Hydrochlorothiazide) 25 mg PO DAILY [facility] Last Admin: 04/21/19 08:10 Dose: 25 mg Diltiazem HCl 100 mg/ Sodium (Chloride) 100 mls @ 5 mls/hr IV ASDIRECTED [facility]; Protocol Stop: 04/21/19 12:00 Last Admin: 04/21/19 08:11 Dose: 15 mg/hr, 15 mls/hr Ibuprofen (Motrin) 600 mg PO Q6H PRN PRN Reason: Pain (mild 1-3) Lisinopril (Prinivil) 30 mg PO DAILY [facility] Last Admin: 04/21/19 08:09 Dose: 30 mg Lorazepam (Ativan) 1 mg IVPUSH Q6H PRN PRN Reason: Anxiety Last Admin: 04/21/19 09:38 Dose: 1 mg Omeprazole (Omeprazole) 20 mg PO ACBREAKFAST [facility] Last Admin: 04/21/19 08:11 Dose: 20 mg Ondansetron HCl (Zofran Odt) 4 mg PO Q4H PRN PRN Reason: nausea, able to take PO Ondansetron HCl (Zofran) 4 mg IVPUSH Q4H PRN PRN Reason: Nausea Metformin Er [ (Glucophage Xr] 750mg) 1 each PO BID [facility] Last Admin: 04/21/19 08:11 Dose: 1 each Rivaroxaban (Xarelto) 20 mg PO DAILY [facility] Last Admin: 04/21/19 08:10 Dose: 20 mg Sodium Chloride (Saline Flush) 10 ml FLUSH ASDIRECTED PRN PRN Reason: Keep Vein Open Last Admin: 04/20/19 07:08 Dose: 10 ml Sodium Chloride (Saline Flush) 2.5 ml FLUSH ASDIRECTED PRN PRN Reason: Keep Vein Open Last Admin: 04/20/19 07:08 Dose: 2.5 ml Sotalol HCl (Betapace) 120 mg PO BID [facility] Discontinued Medications Digoxin (Lanoxin) 125 mcg IVPUSH ONETIME ONE Stop: 04/20/19 07:47 Last Admin: 04/20/19 07:56 Dose: 125 mcg Diltiazem HCl (Diltiazem) 25 mg IVPUSH ONETIME ONE Stop: 04/20/19 06:22 Last Admin: 04/20/19 06:27 Dose: 25 mg Diltiazem HCl (Diltiazem) Confirm Administered Dose 25 mg .ROUTE .STK-MED ONE Stop: 04/20/19 06:24 Last Admin: 04/20/19 06:34 Dose: Not Given Diltiazem HCl (Diltiazem) 20 mg IVPUSH ONETIME ONE Stop: 04/20/19 07:14 Last Admin: 04/20/19 07:25 Dose: 20 mg Diltiazem HCl (Diltiazem) 5 mg IVPUSH ONETIME ONE Stop: 04/20/19 09:18 Last Admin: 04/20/19 09:43 Dose: 5 mg Diltiazem HCl (Diltiazem) 5 mg IVPUSH ONETIME ONE Stop: 04/20/19 11:18 Last Admin: 04/20/19 11:37 Dose: 5 mg Diltiazem HCl (Cardizem Cd) 360 mg PO DAILY [facility] Sodium Chloride (Normal Saline) 1,000 mls @ 1,225 mls/hr IV STAT RADHA Last Infusion: 04/20/19 07:09 Dose: 125 mls/hr Diltiazem HCl 125 mg/ Sodium (Chloride) 125 mls @ 5 mls/hr IV NOW RADHA; Protocol Diltiazem HCl 100 mg/ Sodium (Chloride) 100 mls @ 5 mls/hr IV NOW RADHA; Protocol Last Admin: 04/20/19 15:43 Dose: 10 mg/hr, 10 mls/hr Lisinopril (Prinivil) 20 mg PO DAILY [facility] Last Admin: 04/20/19 09:53 Dose: 20 mg Metoprolol Tartrate (Lopressor) 50 mg PO Q12H [facility] Last Admin: 04/21/19 03:25 Dose: 50 mg Non-Formulary Medication (Lisinopril) 20 mg PO DAILY [facility] Non-Formulary Medication (Metformin) 1 tab PO BID [facility] Potassium Chloride (Klor-Con M20) 40 meq PO Q3H [facility] Stop: 04/21/19 11:16 Last Admin: 04/21/19 11:31 Dose: 40 meq Rivaroxaban (Xarelto) 10 mg PO DAILY [facility] Last Admin: 04/20/19 09:54 Dose: 10 mg Rivaroxaban (Xarelto) 10 mg PO ONETIME ONE Stop: 04/20/19 11:23 Last Admin: 04/20/19 11:36 Dose: 10 mg Sotalol HCl (Betapace) 80 mg PO BID [facility] Stop: 04/22/19 09:13 Last Admin: 04/21/19 08:11 Dose: 80 mg Sotalol HCl (Betapace) 40 mg PO ONETIME ONE Stop: 04/21/19 09:31 Last Admin: 04/21/19 09:26 Dose: 40 mg <Stevan Lynn - Last Filed: 04/21/19 17:21> Discharge Summary - Hospital Course Free Text/Narrative:: I have seen and evaluated the patient independent of medical sales associate, Dr. Sue MD. I have reviewed and agree with the plan and care as outlined for this patient by him. I have discussed the case with him. Please see orders. - Patient Data Vitals - Most Recent: Last Vital Signs Temp 37.0 C 04/21/19 04:00 Pulse 75 04/21/19 11:51 Resp 21 H 04/21/19 11:51 BP 130/78 04/21/19 11:00 Pulse Ox 94 L 04/21/19 11:51 I&O - Last 24 hours: Intake & Output 04/21/19 04/21/19 04/21/19 06:59 14:59 22:59 Intake Total 850 120 Output Total 400 Balance 850 -280 Lab Results - Last 24 hrs: Laboratory Results - last 24 hr 04/21/19 04/21/19 04/21/19 Range/Units 04:40 04:40 04:40 WBC 11.41 H (4.0-11.0) K/uL RBC 4.69 (4.30-5.90) M/uL Hgb 13.9 (12.0-16.0) g/dL Hct 42.6 (36.0-46.0) % MCV 90.8 (80.0-98.0) fL MCH 29.6 (27.0-32.0) pg MCHC 32.6 (31.0-37.0) g/dL RDW Std Deviation 47.7 (28.0-62.0) fl RDW Coeff of All 15 (11.0-15.0) % Plt Count 267 (150-400) K/uL MPV 10.60 (7.40-12.00) fL Nucleated RBC % 0.0 /100WBC Nucleated RBCs # 0 K/uL Sodium 142 (136-145) mmol/L Potassium 3.2 L (3.5-5.1) mmol/L Chloride 107 (98-107) mmol/L Carbon Dioxide 24.9 (21.0-32.0) mmol/L BUN 12 (7.0-18.0) mg/dL Creatinine 0.8 (0.6-1.0) mg/dL Est Cr Clr Drug Dosing 85.76 mL/min Estimated GFR (MDRD) > 60.0 ml/min Glucose 113 H (74-106) mg/dL Calcium 9.0 (8.5-10.1) mg/dL Magnesium 2.0 (1.8-2.4) mg/dL Troponin I (0.000-0.056) ng/mL Triglycerides 201 H (0-200) mg/dL Cholesterol 168 (50-200) mg/dL LDL Cholesterol, Calc 98 (60-180) mg/dL VLDL Cholesterol 40 (5-55) mg/dL HDL Cholesterol 30 L (40-60) mg/dL Cholesterol/HDL Ratio 5.6 (3.3-6.0) 04/21/19 Range/Units 09:31 WBC (4.0-11.0) K/uL RBC (4.30-5.90) M/uL Hgb (12.0-16.0) g/dL Hct (36.0-46.0) % MCV (80.0-98.0) fL MCH (27.0-32.0) pg MCHC (31.0-37.0) g/dL RDW Std Deviation (28.0-62.0) fl RDW Coeff of All (11.0-15.0) % Plt Count (150-400) K/uL MPV (7.40-12.00) fL Nucleated RBC % /100WBC Nucleated RBCs # K/uL Sodium (136-145) mmol/L Potassium (3.5-5.1) mmol/L Chloride (98-107) mmol/L Carbon Dioxide (21.0-32.0) mmol/L BUN (7.0-18.0) mg/dL Creatinine (0.6-1.0) mg/dL Est Cr Clr Drug Dosing mL/min Estimated GFR (MDRD) ml/min Glucose (74-106) mg/dL Calcium (8.5-10.1) mg/dL Magnesium (1.8-2.4) mg/dL Troponin I < 0.050 (0.000-0.056) ng/mL Triglycerides (0-200) mg/dL Cholesterol (50-200) mg/dL LDL Cholesterol, Calc (60-180) mg/dL VLDL Cholesterol (5-55) mg/dL HDL Cholesterol (40-60) mg/dL Cholesterol/HDL Ratio (3.3-6.0) Med Orders - Current: Current Medications Discontinued Medications Acetaminophen (Tylenol) 650 mg PO Q4H PRN PRN Reason: Pain (Mild 1-3)/fever Albuterol (Proventil Neb Soln) 2.5 mg NEB Q2H PRN PRN Reason: Shortness Of Breath/wheezing Digoxin (Lanoxin) 125 mcg IVPUSH ONETIME ONE Stop: 04/20/19 07:47 Last Admin: 04/20/19 07:56 Dose: 125 mcg Diltiazem HCl (Diltiazem) 25 mg IVPUSH ONETIME ONE Stop: 04/20/19 06:22 Last Admin: 04/20/19 06:27 Dose: 25 mg Diltiazem HCl (Diltiazem) Confirm Administered Dose 25 mg .ROUTE .STK-MED ONE Stop: 04/20/19 06:24 Last Admin: 04/20/19 06:34 Dose: Not Given Diltiazem HCl (Diltiazem) 20 mg IVPUSH ONETIME ONE Stop: 04/20/19 07:14 Last Admin: 04/20/19 07:25 Dose: 20 mg Diltiazem HCl (Diltiazem) 5 mg IVPUSH ONETIME ONE Stop: 04/20/19 09:18 Last Admin: 04/20/19 09:43 Dose: 5 mg Diltiazem HCl (Diltiazem) 5 mg IVPUSH ONETIME ONE Stop: 04/20/19 11:18 Last Admin: 04/20/19 11:37 Dose: 5 mg Diltiazem HCl (Cardizem Cd) 360 mg PO DAILY [facility] Last Admin: 04/21/19 09:44 Dose: 360 mg Diltiazem HCl (Cardizem Cd) 360 mg PO DAILY [facility] Hydrochlorothiazide (Hydrochlorothiazide) 25 mg PO DAILY [facility] Last Admin: 04/21/19 08:10 Dose: 25 mg Sodium Chloride (Normal Saline) 1,000 mls @ 1,225 mls/hr IV STAT [facility] Last Infusion: 04/20/19 07:09 Dose: 125 mls/hr Diltiazem HCl 125 mg/ Sodium (Chloride) 125 mls @ 5 mls/hr IV NOW [facility]; Protocol Diltiazem HCl 100 mg/ Sodium (Chloride) 100 mls @ 5 mls/hr IV NOW [facility]; Protocol Last Admin: 04/20/19 15:43 Dose: 10 mg/hr, 10 mls/hr Diltiazem HCl 100 mg/ Sodium (Chloride) 100 mls @ 5 mls/hr IV ASDIRECTED [facility]; Protocol Stop: 04/21/19 12:00 Last Admin: 04/21/19 08:11 Dose: 15 mg/hr, 15 mls/hr Ibuprofen (Motrin) 600 mg PO Q6H PRN PRN Reason: Pain (mild 1-3) Lisinopril (Prinivil) 20 mg PO DAILY [facility] Last Admin: 04/20/19 09:53 Dose: 20 mg Lisinopril (Prinivil) 30 mg PO DAILY [facility] Last Admin: 04/21/19 08:09 Dose: 30 mg Lorazepam (Ativan) 1 mg IVPUSH Q6H PRN PRN Reason: Anxiety Last Admin: 04/21/19 09:38 Dose: 1 mg Metoprolol Tartrate (Lopressor) 50 mg PO Q12H [facility] Last Admin: 04/21/19 03:25 Dose: 50 mg Non-Formulary Medication (Lisinopril) 20 mg PO DAILY [facility] Non-Formulary Medication (Metformin) 1 tab PO BID [facility] Omeprazole (Omeprazole) 20 mg PO ACBREAKFAST [facility] Last Admin: 04/21/19 08:11 Dose: 20 mg Ondansetron HCl (Zofran Odt) 4 mg PO Q4H PRN PRN Reason: nausea, able to take PO Ondansetron HCl (Zofran) 4 mg IVPUSH Q4H PRN PRN Reason: Nausea Metformin Er [ (Glucophage Xr] 750mg) 1 each PO BID [facility] Last Admin: 04/21/19 08:11 Dose: 1 each Potassium Chloride (Klor-Con M20) 40 meq PO Q3H [facility] Stop: 04/21/19 11:16 Last Admin: 04/21/19 11:31 Dose: 40 meq Rivaroxaban (Xarelto) 10 mg PO DAILY [facility] Last Admin: 04/20/19 09:54 Dose: 10 mg Rivaroxaban (Xarelto) 20 mg PO DAILY [facility] Last Admin: 04/21/19 08:10 Dose: 20 mg Rivaroxaban (Xarelto) 10 mg PO ONETIME ONE Stop: 04/20/19 11:23 Last Admin: 04/20/19 11:36 Dose: 10 mg Sodium Chloride (Saline Flush) 10 ml FLUSH ASDIRECTED PRN PRN Reason: Keep Vein Open Last Admin: 04/20/19 07:08 Dose: 10 ml Sodium Chloride (Saline Flush) 2.5 ml FLUSH ASDIRECTED PRN PRN Reason: Keep Vein Open Last Admin: 04/20/19 07:08 Dose: 2.5 ml Sotalol HCl (Betapace) 80 mg PO BID [facility] Stop: 04/22/19 09:13 Last Admin: 04/21/19 08:11 Dose: 80 mg Sotalol HCl (Betapace) 40 mg PO ONETIME ONE Stop: 04/21/19 09:31 Last Admin: 04/21/19 09:26 Dose: 40 mg Sotalol HCl (Betapace) 120 mg PO BID [facility]
[2019-04-21] MEDS ORDERED: Sotalol 80 MG Tab PO SCH (21:00)
--- NOTE | 2019-04-23 10:11 | ECHO ---
The echocardiogram report can be seen in this patient's EMR (Electronic Medical Record) in the Reports section. The echocardiogram report has also been scanned into PACS and can be seen there as well. JORGE
== END 2019-04-21 12:27 | disposition home or self-care (01) | DRG 309 ==
LOC: MW.ED 06:08 → MW.ICU 08:21 → MW.ED 08:21 → MW.ICU 08:33
PROVIDERS: ADMIT Internal Medicine; ATTEND Internal Medicine
DX: I48.1 Persistent atrial fibrillation (principal); Z68.44 Body mass index [BMI] 60.0-69.9, adult; I10 Essential (primary) hypertension; J45.909 Unspecified asthma, uncomplicated; E11.9 Type 2 diabetes mellitus without complications; G43.909 Migraine, unspecified, not intractable, without status migrainosus; E66.01 Morbid (severe) obesity due to excess calories; Z88.8 Allergy status to other drugs, medicaments and biological substances; Z91.048 Other nonmedicinal substance allergy status; Z79.84 Long term (current) use of oral hypoglycemic drugs; Z79.899 Other long term (current) drug therapy; Z90.49 Acquired absence of other specified parts of digestive tract
CPT/HCPCS: 36415; 71045; 71045-26; 80048; 80053; 80061; 83036; 83735; 84443; 84484; 85025; 85027; 85610; 93005; 93306; 96361; 96374; 96375; 96376; 99285-25; A9270-GY; J1160; J2060; J3490; J7030; J7040

== ENCOUNTER 2019-12-08 23:09 | Emergency (ER) | payer OTHER ==
--- NOTE | 2019-12-08 23:19 | EDM.PDOC ---
ED [facility] GENERAL MEDICAL PROBLEM - General Stated Complaint: CHEST PAIN Time Seen by Provider: 12/08/19 23:18 Source of Information: Reports: Patient History Limitations: Reports: No Limitations - History of Present Illness INITIAL COMMENTS - FREE TEXT/NARRATIVE: Patient is 43-year-old female past medical history of morbid obesity and A. fib complaining of chest tightness. Duration of symptoms been 1.5 hours. Associated symptoms include nausea vomiting and diaphoresis. Symptoms started at rest. Patient denies any similar history of prior symptoms. Patient states the symptoms are still present. Patient denies any radiation of the pain to the back. Patient denies any abdominal pain. Nothing makes symptoms better or worse. Pmhx: A. fib, morbid obesity, PCOS Pshx: Per chart Family Hx: noncontributory Smoking history? no Etoh use? none Drug use? none In addition to that documented in the HPI above, the additional ROS was obtained : Constitutional: Denies fevers or chills Eyes: Denies vision changes ENMT: Denies sore throat CV: Per HPI Resp: Denies SOB GI: Denies vomiting or diarrhea : Denies painful urination MSK: Denies recent trauma Skin: Denies new rashes Neuro: Denies new numbness or tingling or weakness Endocrine: Denies unexpected weight loss Heme: Denies bleeding disorders I have reviewed the triage vital signs Const: Well nourished, well developed, appears stated age Eyes: PERRL, no conjunctival injection HENT: NCAT, Neck supple without meningismus CV: RRR, Warm, well-perfused extremities RESP: CTAB, Unlabored respiratory effort GI: soft, non-tender, non-distended, no masses MSK: No gross deformities appreciated Skin: Warm, dry. No rashes Neuro: Alert, bread baker II-XII grossly intact. Sensation and motor function of extremities grossly intact. Psych: Appropriate mood and affect Assessment and plan Patient 43-year-old female presenting with chief complaint of chest tightness. Patient had serial EKGs and troponin both negative. Patient had unremarkable emergency department course. Patient feels better after a period of observation. ACS was considered in the differential but patient has a heart score of 3 and does not require admission to the hospital. In addition, PE considered however with negative d-dimer, no further work-up is indicated. Patient has normal chest x-ray and no evidence of pneumothorax. 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 fib. Patient is not in A. fib right now does not require any further work-up or evaluation. Patient given usual discharge instructions and all questions were addressed and answered. Patient agrees with plan. - Related Data Allergies Allergy/AdvReac Type Severity Reaction Status Date / Time adhesive tape Allergy Hives Verified 12/08/19 23:28 diphenhydramine Allergy Tachycardia Verified 12/08/19 23:28 [From Benadryl] Home Meds: Home Meds Lisinopril 30 mg PO DAILY 06/26/18 [History] metFORMIN [Glucophage XR] 1 tab PO BID 06/26/18 [History] hydroCHLOROthiazide [Hydrochlorothiazide] 1 tab PO DAILY 08/07/18 [History] Diltiazem HCl [Diltiazem ER] 360 mg PO DAILY 30 Days #30 capsule.er 04/21/19 [Rx ] Rivaroxaban [Xarelto] 20 mg PO DAILY 30 Days #30 tablet 04/21/19 [Rx] Sotalol HCl [Sotalol] 120 mg PO BID 30 Days #60 tablet 04/21/19 [Rx] ClonazePAM [KlonoPIN] 1 tab PO BID 12/09/19 [History] Sertraline [Zoloft] 100 mg PO DAILY 12/09/19 [History] buPROPion HCl [Wellbutrin Xl] 1 tab PO DAILY 12/09/19 [History] Past Medical History HEENT History: Reports: Other (See Below) Other HEENT History: sinus infections Cardiovascular History: Reports: Afib, Arrhythmia, Hypertension Other Cardiovascular History: tachycardia diagnosed 13 years ago Respiratory History: Reports: Asthma 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: Polycystic Ovaries Neurological History: Reports: Migraines Psychiatric History: Reports: Anxiety Endocrine/Metabolic History: Reports: Obesity/BMI 30+ Other Endocrine/Metabolic History: history of pre-diabetic - Infectious Disease History Infectious Disease History: Reports: Chicken Pox - Past Surgical History HEENT Surgical History: Reports: Tonsillectomy Cardiovascular Surgical History: Reports: Other (See Below) Other Cardiovascular Surgeries/Procedures: cardioversion GI Surgical History: Reports: Cholecystectomy Female Surgical History: Reports: D&C Social & Family History - Family History Family Medical History: Noncontributory - Caffeine Use Caffeine Use: Reports: None ED [facility] GENERAL - Review of Systems Review Of Systems: See Below ED EXAM, GENERAL - Physical Exam Exam: See Below Course - Vital Signs Last Recorded V/S: Last Vital Signs Temp 35.7 C L 12/08/19 23:22 Pulse 101 H 12/09/19 00:54 Resp 20 12/09/19 00:15 BP 187/109 H 12/09/19 00:54 Pulse Ox 96 12/09/19 00:30 - Orders/Labs/Meds Orders: Active Orders 24 hr Category Date Time Status EKG Documentation Completion [RC] STAT Care 12/08/19 23:17 Active EKG Documentation Completion [RC] STAT Care 12/09/19 01:56 Active Labs: Laboratory Tests 12/08/19 12/08/19 12/08/19 Range/Units 23:50 23:50 23:50 WBC 14.68 H (4.0-11.0) K/uL RBC 4.83 (4.30-5.90) M/uL Hgb 14.7 (12.0-16.0) g/dL Hct 44.6 (36.0-46.0) % MCV 92.3 (80.0-98.0) fL MCH 30.4 (27.0-32.0) pg MCHC 33.0 (31.0-37.0) g/dL RDW Std Deviation 49.9 (28.0-62.0) fl RDW Coeff of All 15 (11.0-15.0) % Plt Count 332 (150-400) K/uL MPV 10.90 (7.40-12.00) fL Neut % (Auto) 77.4 (48.0-80.0) % Lymph % (Auto) 15.1 L (16.0-40.0) % [place] % (Auto) 5.3 (0.0-15.0) % Eos % (Auto) 1.8 (0.0-7.0) % Baso % (Auto) 0.4 (0.0-1.5) % Neut # (Auto) 11.4 H (1.4-5.7) K/uL Lymph # (Auto) 2.2 (0.6-2.4) K/uL [place] # (Auto) 0.8 (0.0-0.8) K/uL Eos # (Auto) 0.3 (0.0-0.7) K/uL Baso # (Auto) 0.1 (0.0-0.1) K/uL Nucleated RBC % 1.0 /100WBC Nucleated RBCs # 0 K/uL INR 0.98 D-Dimer, Quantitative < 0.19 (0.0-0.50) mg/L FEU Sodium 142 (136-145) mmol/L Potassium 4.2 (3.5-5.1) mmol/L Chloride 104 (98-107) mmol/L Carbon Dioxide 29.4 (21.0-32.0) mmol/L BUN 21 H (7.0-18.0) mg/dL Creatinine 1.0 (0.6-1.0) mg/dL Est Cr Clr Drug Dosing TNP Estimated GFR (MDRD) > 60.0 ml/min Glucose 164 H (74-106) mg/dL Calcium 9.5 (8.5-10.1) mg/dL Total Bilirubin 0.2 (0.2-1.0) mg/dL AST 61 H (15-37) IU/L ALT 42 (14-63) IU/L Alkaline Phosphatase 88 (46-116) U/L Troponin I < 0.050 (0.000-0.056) ng/mL Total Protein 7.1 (6.4-8.2) g/dL Albumin 3.1 L (3.4-5.0) g/dL Globulin 4.0 (2.6-4.0) g/dL Albumin/Globulin Ratio 0.8 L (0.9-1.6) HCG, Qual (NEG) 12/08/19 12/09/19 Range/Units 23:50 02:07 WBC (4.0-11.0) K/uL RBC (4.30-5.90) M/uL Hgb (12.0-16.0) g/dL Hct (36.0-46.0) % MCV (80.0-98.0) fL MCH (27.0-32.0) pg MCHC (31.0-37.0) g/dL RDW Std Deviation (28.0-62.0) fl RDW Coeff of All (11.0-15.0) % Plt Count (150-400) K/uL MPV (7.40-12.00) fL Neut % (Auto) (48.0-80.0) % Lymph % (Auto) (16.0-40.0) % [place] % (Auto) (0.0-15.0) % Eos % (Auto) (0.0-7.0) % Baso % (Auto) (0.0-1.5) % Neut # (Auto) (1.4-5.7) K/uL Lymph # (Auto) (0.6-2.4) K/uL [place] # (Auto) (0.0-0.8) K/uL Eos # (Auto) (0.0-0.7) K/uL Baso # (Auto) (0.0-0.1) K/uL Nucleated RBC % /100WBC Nucleated RBCs # K/uL INR D-Dimer, Quantitative (0.0-0.50) mg/L FEU Sodium (136-145) mmol/L Potassium (3.5-5.1) mmol/L Chloride (98-107) mmol/L Carbon Dioxide (21.0-32.0) mmol/L BUN (7.0-18.0) mg/dL Creatinine (0.6-1.0) mg/dL Est Cr Clr Drug Dosing Estimated GFR (MDRD) ml/min Glucose (74-106) mg/dL Calcium (8.5-10.1) mg/dL Total Bilirubin (0.2-1.0) mg/dL AST (15-37) IU/L ALT (14-63) IU/L Alkaline Phosphatase (46-116) U/L Troponin I < 0.050 (0.000-0.056) ng/mL Total Protein (6.4-8.2) g/dL Albumin (3.4-5.0) g/dL Globulin (2.6-4.0) g/dL Albumin/Globulin Ratio (0.9-1.6) HCG, Qual NEGATIVE (NEG) Meds: Medications Discontinued Medications Generic Name Dose Route Start Last Admin Trade Name Freq PRN Reason Stop Dose Admin Sodium Chloride 1,000 mls @ 1,000 mls/hr 12/09/19 01:10 12/09/19 01:16 Normal Saline IV 12/09/19 02:09 1,000 mls/hr .Bolus ONE Administration Ondansetron HCl 4 mg 12/09/19 00:21 12/09/19 00:25 Zofran IVPUSH 12/09/19 00:22 4 mg ONETIME ONE Administration Sotalol HCl 120 mg 12/09/19 00:46 12/09/19 00:54 Betapace PO 12/09/19 00:47 120 mg NOW STA Administration Departure - Departure Time of Disposition: 02:42 Disposition: Home, Self-Care 01 Clinical Impression: Chest pain Instructions: Nonspecific Chest Pain, Adult Referrals: PCP,None [Primary Care Provider] - Forms: ED Department Discharge Additional Instructions: The following information is given to patients seen in the emergency department who are being discharged to home. This information is to outline your options for follow-up care. We provide all patients seen in our emergency department with a follow-up referral. The need for follow-up, as well as the timing and circumstances, are variable depending upon the specifics of your emergency department visit. If you don't have a primary care physician on staff, we will provide you with a referral. We always advise you to contact your personal physician following an emergency department visit to inform them of the circumstance of the visit and for follow-up with them and/or the need for any referrals to a consulting specialist. The emergency department will also refer you to a specialist when appropriate. This referral assures that you have the opportunity for follow-up care with a specialist. All of these measure are taken in an effort to provide you with optimal care, which includes your follow-up. Under all circumstances we always encourage you to contact your private physician who remains a resource for coordinating your care. When calling for follow-up care, please make the office aware that this follow-up is from your recent emergency room visit. If for any reason you are refused follow-up, please contact the [facility] Emergency Department at and asked to speak to the emergency department charge nurse. Sepsis Event Note - Focused Exam Vital Signs: Vital Signs Temp Pulse Pulse Resp BP BP Pulse Ox 12/09/19 00:54 101 H 187/109 H 12/09/19 00:30 100 191/104 H 96 12/09/19 00:15 101 H 20 185/106 H 96 12/08/19 23:59 97 176/100 H 12/08/19 23:40 96 155/90 H 12/08/19 23:29 97 169/98 H 12/08/19 23:22 35.7 C L 102 H 20 166/104 H 96 Date Exam was Performed: 12/09/19 Time Exam was Performed: 02:41 - My Orders Last 24 Hours: My Active Orders 12/08/19 23:17 EKG Documentation Completion [RC] STAT 12/09/19 01:56 EKG Documentation Completion [RC] STAT - Assessment/Plan Last 24 Hours: My Active Orders 12/08/19 23:17 EKG Documentation Completion [RC] STAT 12/09/19 01:56 EKG Documentation Completion [RC] STAT
--- NOTE | 2019-12-08 23:44 | CR ---
INDICATION: Chest tightness TECHNIQUE: Frontal view of the chest. COMPARISON: Single-view chest radiograph 04/20/2019 FINDINGS: The lungs are clear. There is no sizable pleural effusion or pneumothorax. The cardiomediastinal silhouette is normal. The visualized osseous structures are unremarkable. IMPRESSION: No acute intrathoracic process. Dictated by Les San MD @ Dec 08 2019 11:42PM Signed by Dr. Les San @ Dec 08 2019 11:42PM
[2019-12-09] MEDS ORDERED: Ondansetron 4 MG/2 ML SDV IVPUSH ONE (00:21)
[2019-12-09 00:30] LABS: BLOOD UREA NITROGEN,BUN 21 mg/dL (7.0-18.0); CARBON DIOXIDE,CO2 29.4 mmol/L (21.0-32.0); CHLORIDE,CL 104 mmol/L (98-107); GLUCOSE RANDOM 164 mg/dL (74-106); POTASSIUM,K 4.2 mmol/L (3.5-5.1); SODIUM,NA 142 mmol/L (136-145)
[2019-12-09] MEDS ORDERED: Sotalol 80 MG Tab PO STA (00:46)
[2019-12-09] MEDS ORDERED: Sodium Chloride 0.9% 1,000 ML IV ONE (01:10)
== END 2019-12-09 02:55 | disposition home or self-care (01) ==
LOC: MW.ED 23:09
DX: R07.89 Other chest pain (principal); I48.91 Unspecified atrial fibrillation; E66.01 Morbid (severe) obesity due to excess calories; F41.9 Anxiety disorder, unspecified; Z91.09 Other allergy status, other than to drugs and biological substances; Z88.8 Allergy status to other drugs, medicaments and biological substances; Z79.899 Other long term (current) drug therapy
CPT/HCPCS: 36415; 71045; 80053; 84484; 84703; 85025; 85379; 85610; 96361; 96374; 99285; A9270; J2405; J7030; 93005; 99283

== ENCOUNTER 2022-03-01 10:06 | Emergency (ER) | payer BC, OTHER ==
[2022-03-01] MEDS ORDERED: Sodium Chloride 0.9% 1,000 ML IV ONE (10:31)
[2022-03-01 11:41] LABS: CARBON DIOXIDE,CO2 25.6 mmol/L (21.0-32.0); POTASSIUM,K 3.5 mmol/L (3.5-5.1)
== END 2022-03-01 12:25 | disposition home or self-care (01) ==
LOC: MW.ED 10:06
DX: N93.8 Other specified abnormal uterine and vaginal bleeding (principal); I10 Essential (primary) hypertension; E66.9 Obesity, unspecified; Z68.31 Body mass index [BMI] 31.0-31.9, adult; Z79.899 Other long term (current) drug therapy
CPT/HCPCS: 36415; 76830; 80053; 81025; 85025; 96360; 99284; J7030

== ENCOUNTER 2022-09-21 17:03 | Emergency (ER) | payer SELFPAY ==
[2022-09-21 21:45] LABS: CARBON DIOXIDE,CO2 29.2 mmol/L (21.0-32.0); POTASSIUM,K 3.4 mmol/L (3.5-5.1)
== END 2022-09-21 22:16 | disposition home or self-care (01) ==
LOC: MW.ED 17:03
DX: N93.9 Abnormal uterine and vaginal bleeding, unspecified (principal); D64.9 Anemia, unspecified; I10 Essential (primary) hypertension; J45.909 Unspecified asthma, uncomplicated; I48.91 Unspecified atrial fibrillation; E66.9 Obesity, unspecified; Z68.30 Body mass index [BMI] 30.0-30.9, adult; Z88.8 Allergy status to other drugs, medicaments and biological substances; Z91.048 Other nonmedicinal substance allergy status; Z79.01 Long term (current) use of anticoagulants; Z79.899 Other long term (current) drug therapy
CPT/HCPCS: 36415; 80053; 82728; 83550; 83735; 84703; 85025; 85610; 85730; 99284

== ENCOUNTER 2024-10-28 15:14 | Emergency (ER) | payer BC ==
[2024-10-28] MEDS ORDERED: Sodium Chloride 0.9% 10 ML Syringe FLUSH PRN (16:00)
[2024-10-28] MEDS: Sodium Chloride 0.9% 1,000 ML IV ONE (16:19)
[2024-10-28 16:23] LABS: BASOPHILS ABSOLUTE AUTO 0.09 K/uL (0.00-0.20); EOSINOPHILS ABSOLUTE AUTO 0.59 K/uL (0.00-0.45); EOSINOPHILS PERCENT AUTO 6.5 % (0.0-6.0); IMMATURE GRAN ABSOLUTE AUTO 0.02 K/uL (0.00-0.05); IMMATURE GRAN PERCENT AUTO 0.2 % (0.0-0.4); LYMPHOCYTES ABSOLUTE AUTO 2.64 K/uL (1.00-4.80); MEAN CORPUSCULAR HEMOGLOBIN 22.4 pg (28.0-32.0); MEAN CORPUSCULAR VOLUME 77.3 fL (83.0-99.0); MEAN PLATELET VOLUME 9.7 fL (9.4-12.3); MONOCYTES ABSOLUTE AUTO 0.67 K/uL (0.00-0.80); MONOCYTES PERCENT AUTO 7.4 % (0.0-8.0); NEUTROPHILS ABSOLUTE AUTO 5.09 K/uL (1.80-7.70); NEUTROPHILS PERCENT AUTO 55.9 % (41.0-71.0); NRBC ABSOLUTE 0.02 K/uL (0.00-0.02); NRBC PERCENT 0.2 /100WBC (0.0-0.2); PLATELET COUNT,PLT 469 K/uL (150-400); RED BLOOD CELL COUNT 4.01 M/uL (4.10-5.30)
[2024-10-28 16:37] LABS: INR 0.97 (0.86-1.11)
[2024-10-28 16:48] LABS: A/G RATIO 0.7 (0.9-1.6); ALBUMIN 2.7 g/dL (3.4-5.0); BILIRUBIN TOTAL 0.4 mg/dL (0.2-1.0); CALCIUM 8.8 mg/dL (8.5-10.1); CARBON DIOXIDE,CO2 26.3 mmol/L (21.0-32.0); CREATININE 0.9 mg/dL (0.6-1.0); EST CRCL DRUG DOSING (CG) 72.34 mL/min; MAGNESIUM 1.9 mg/dL (1.8-2.4); PROTEIN TOTAL,TP 6.4 g/dL (6.4-8.2)
[2024-10-28] MEDS: Iopamidol 755 MG/ML 500 ML Multipack Bottle IVPUSH STA (17:01)
== END 2024-10-28 18:36 | disposition home or self-care (01) ==
LOC: MW.ED 15:14
DX: L76.22 Postprocedural hemorrhage of skin and subcutaneous tissue following other procedure (principal); I10 Essential (primary) hypertension; E66.9 Obesity, unspecified; Z90.49 Acquired absence of other specified parts of digestive tract; Z79.899 Other long term (current) drug therapy; Z79.84 Long term (current) use of oral hypoglycemic drugs; Z79.51 Long term (current) use of inhaled steroids; Z91.048 Other nonmedicinal substance allergy status; Z88.8 Allergy status to other drugs, medicaments and biological substances; Z68.43 Body mass index [BMI] 50.0-59.9, adult
CPT/HCPCS: 36415; 74177; 80053; 83735; 85025; 85610; 96360; 99284; J7030; Q9967